=== PATIENT | male | born 1985 | race Caucasian/White ===

== ENCOUNTER 2017-02-13 23:00 | Emergency (ER) | payer SELFPAY ==
[~2017-02-13] VITALS: Ht 177.8 cm; Wt 86.2 kg
--- NOTE | 2017-02-13 23:10 | NUR ---
To bed 08 a 31 yo male bibra for aloc patient, refusing to speak with ems, no trauma noted. Patient is alert, responsive to verbal stimuli. When asked, what brought him to the er. patient admitted to taking "many drugs." Breathing even and unlabored. VSS. No s/s of acute distress noted. Safety initiated. Will monitor.
--- NOTE | 2017-02-13 23:20 | NUR ---
phleb to draw blood.
[2017-02-13 23:26] LABS: BASOPHILS % (AUTO) 0.1 % (0.0-2.0); EOSINOPHILS % (AUTO) 0.3 % (0.0-6.0); HEMATOCRIT 43 % (39-51); HEMOGLOBIN 14.8 g/dL (13.5-17.5); LYMPHOCYTES # (AUTO) 1.6 /CMM (0.8-4.8); LYMPHOCYTES % (AUTO) 10.2 % (20.0-44.0); MEAN CORPUSCULAR HEMOGLOBIN 31 PG (26.0-33.0); MEAN CORPUSCULAR HGB CONC 35 g/dl (31.0-36.0); MEAN CORPUSCULAR VOLUME 89 fL (80-96); NEUTROPHILS # (AUTO) 13.4 /CMM (1.8-8.9); NEUTROPHILS % (AUTO) 83.4 % (43.0-81.0); PLATELET COUNT (AUTO) 221 /CMM (150-450); RDW COEFFICIENT OF VARIATION 12.4 (11.5-15.0); RED BLOOD CELL COUNT(AUTO) 4.85 MIL/uL (4.5-6.0); WHITE BLOOD COUNT (AUTO) 16.1 K/uL (4.3-11.0)
[2017-02-13 23:34] LABS: CALCIUM, SERUM 8.5 mg/dL (8.5-10.1); CARBON DIOXIDE 23 mmol/L (21-32); CHLORIDE 105 mmol/L (98-107); CREATININE 1.1 mg/dL (0.6-1.3); GLUCOSE 75 mg/dL (74-106); POTASSIUM 3.1 mmol/L (3.5-5.1); SODIUM SERUM 143 mmol/L (136-145); UREA NITROGEN, BLOOD 27 mg/dL (7-18)
[2017-02-13 23:41] LABS: ACETAMINOPHEN 0 ug/ml (10-30); ALANINE AMINOTRANSFERASE 41 U/L (12-78); ALBUMIN 4.2 g/dL (3.4-5.0); ALCOHOL, BLOOD < 3 mg/dL (0-0); ALKALINE PHOSPHATASE 88 U/L (46-116); ASPARTATE AMINOTRANSFERASE 56 U/L (15-37); BILIRUBIN,DIRECT 0.1 mg/dL (0.0-0.2); SALICYLATE 1.6 mg/dL (2.8-20.0); TOTAL PROTEIN, SERUM 7.4 g/dL (6.4-8.2)
[2017-02-13] MEDS ORDERED: IV NS 0.9% 1,000 ML ONE ×2 (23:46→23:56)
[2017-02-13] MEDS ORDERED: LORAZEPAM INJ 2 MG/ML VIAL ONE (23:46)
[2017-02-13] MEDS ORDERED: IV SET PRIMARY 1 EA INFUS.SET MC ONE ×2 (23:46→23:49)
--- NOTE | 2017-02-13 23:59 | NUR ---
meditaed pt as ordered
[2017-02-14] MEDS ORDERED: IV NS 0.9% 1,000 ML BAG IV ONE
[2017-02-14] MEDS ORDERED: LORAZEPAM INJ 2 MG/ML VIAL IV ONE
[2017-02-14 00:37] LABS: APPEARANCE,URINE CLEAR (CLEAR); BILIRUBIN,URINE NEGATIVE (NEGATIVE); BLOOD, URINE NEGATIVE Ery/uL (NEGATIVE); COLOR,URINE YELLOW (YELLOW); KETONES,URINE 1+ (NEGATIVE); LEUKOCYTE ESTERASE ,URINE NEGATIVE (NEGATIVE); NITRITE, URINE NEGATIVE (NEGATIVE); PROTEIN,URINE NEGATIVE (NEGATIVE); UGLUCOSE NEGATIVE (NEGATIVE); UROBILINOGEN,URINE 0.2 EU/dL (0.2)
[2017-02-14 00:42] LABS: BACTERIA,URINE None seen /HPF (None Seen); HYALINE CASTS, URINE Rare /LPF (None Seen); RBC,URINE 0-2 /HPF (0-2); SQUAMOUS EPITHELIAL CELL,UR Rare /HPF (None Seen); WBC,URINE 0-2 /HPF (0-3)
[2017-02-14 00:43] LABS: MUCUS,URINE Rare /LPF (None Seen)
--- NOTE | 2017-02-14 01:42 | NUR ---
patient is sleeping at this time. Ongoing monitoring.
--- NOTE | 2017-02-14 05:44 | NUR ---
IV removed. Catheter intact and site benign. Pressure and 4x4 applied to site. No bleeding noted. Patient discharged to home in stable condition. Written and verbal after care instructions given. Patient verbalizes understanding of instruction. Patient is ambulatory with steady gait, no further complaints.
[2017-02-14 05:45] VITALS: BP 118/78
== END 2017-02-14 05:45 | disposition home or self-care (01) ==
LOC: ER 23:03
DX: F12.10 Cannabis abuse, uncomplicated (principal)
CPT/HCPCS: 36415; 80048-TC; 80076-TC; 80305; 81000-TC; 82962-TC; 85025-TC; A4606; G0480; J2060; J7030; Z7610